=== PATIENT | female | born 1970 | race Caucasian/White ===

== ENCOUNTER → 2022-04-18 13:26 | Outpatient (CLI) | payer OTHER, SELFPAY ==
--- NOTE | 2022-04-18 13:30 | DI.ECHO.S_ITS ---
[facility] +---------+ : : [address] : [place] : : : : [id number] : : : : Phone: [phone]---------+ Echocardiogram Report + + :Name: ASHLEY HARRIS Study Date: 04/18/2022 Height: 67 in : :[facility] ReadingLocation: Weight: 197 lb : : Gender: Female BSA: 2.0 m2 : :: 1970 Age: 51 yrs BP: 161/100 mmHg: :Reason For Study: HYPERTENSION : :Ordering Physician: SABINE, : :DARLING Performed By: Emilee Santiago : :Referring: DARLING BENAVIDES : + + Interpretation Summary 1) Mildly increased left ventricular thickness (concentric) with normal size, normal wall motion, and normal systolic function (EF 60-65%). 2) Normal right ventricular size and function. 3) No significant valvular abnormalities. 4) Hypertension present during the study (BP 161/100mmHg). 5) No prior Echo available for comparison. Procedure: A two-dimensional transthoracic echocardiogram with color flow and Doppler was performed. The study quality was technically adequate. There is no prior echocardiogram noted for this patient. The patient was in sinus rhythm with heart rates between 73-80 bpm during the exam. Left Ventricle: The left ventricle is normal in size. There is mild concentric left ventricular hypertrophy. The ejection fraction is estimated to be 60-65%. Diastolic parameters suggest probable normal left ventricular diastolic function and normal filling pressures. Right Ventricle: The right ventricle is normal in size and function. Atria: The left atrial size is normal. Right atrial size is normal. There is no Doppler evidence for an interatrial shunt. Mitral Valve: The mitral valve is normal in structure and function. There is no mitral regurgitation noted. Aortic Valve: The aortic valve is not well visualized. The aortic valve is trileaflet. The aortic valve opens well. There is no aortic valve stenosis. No aortic regurgitation is present. Tricuspid Valve: The tricuspid valve is normal in structure and function. There is trace tricuspid regurgitation. Pulmonic Valve: The pulmonic valve is not well visualized. There is no pulmonic valvular regurgitation. Great Vessels: The aortic root is normal size. The dimensions of the ascending aorta are normal. The IVC is of normal diameter and collapses greater than 50% with a sniff. This suggests a low right atrial pressure of 3 mm Hg. Pericardium/ Pleura There is no pericardial effusion. There is no pleural effusion. MMode/2D Measurements & Calculations LVIDd: 4.0 cm LVOT diam: 2.0 cm LVIDs: 2.5 cm Ao root diam: 3.2 cm FS: 37.8 % asc Aorta Diam: 3.3 cm IVSd: 1.3 cm Ao Arch Diam (Prox Trans): 2.7 cm LVPWd: 1.2 cm LV tian. diameter/BSA (cm/m^2): 2.0 LV sys. diameter/BSA (cm/m^2): 1.2 LA A2 area: 18.0 cm2 RA long axis: 4.9 cm LA A4 area: 18.6 cm2 RA area: 17.1 cm2 LA length (vol): 5.2 cm RA vol: 50.2 ml LA vol: 54.6 ml RA : 25.0 ml/m2 LA vol index: 27.2 ml/m2 IVC diam: 1.3 cm RVD1 (basal): 3.4 cm RVD2 (mid): 2.8 cm TAPSE: 2.0 cm Doppler Measurements & Calculations Ao V2 max: 139.1 cm/sec LVOT Max Chester: 100.1 cm/sec Ao V2 mean: 93.4 cm/sec LV V1 max P.0 mmHg Ao max P.7 mmHg LV V1 VTI: 21.7 cm Ao mean P.9 mmHg STANLEY(I,D): 2.5 cm2 Ao V2 VTI: 28.4 cm STANLEY(V,D): 2.3 cm2 sev ratio: 0.76 STANLEY indexed to BSA (cm^2/m^2): 1.2 MV E max chester: 68.0 cm/sec PA V2 max: 77.0 cm/sec MV A max chester: 78.7 cm/sec PA V2 mean: 49.3 cm/sec MV E/A: 0.86 PA mean P.1 mmHg Med Peak E' Chester: 9.3 cm/sec PA pr(Accel): 32.8 mmHg E/E' med: 7.3 Lat Peak E' Chester: 13.9 cm/sec E/E' lat: 4.9 E/e' average: 6.1 MV dec time: 0.28 sec SV(LVOT): 70.4 ml Reading Physician:01:16 PM
== END ==
PROVIDERS: Referring Provider Internal Medicine Cardiovascular Disease; Visit Provider Internal Medicine Cardiovascular Disease
DX: I10 Essential (primary) hypertension (principal)
CPT/HCPCS: 93306